=== PATIENT | male | born 1970 | race Caucasian/White ===

== ENCOUNTER 2021-03-04 19:45 | Emergency (ER) | payer OTHER ==
[~2021-03-04] VITALS: Ht 175.3 cm; Wt 83.9 kg
[2021-03-04] MEDS ORDERED: HYDROCODON-ACE1 EA12 PO (22:20)
== END 2021-03-04 22:39 | disposition home or self-care (01) ==
LOC: FSED 20:11
DX: S61.210A Laceration without foreign body of right index finger without damage to nail, initial encounter (principal); W26.8XXA Contact with other sharp object(s), not elsewhere classified, initial encounter; Y93.G3 Activity, cooking and baking; Y92.000 Kitchen of unspecified non-institutional (private) residence as the place of occurrence of the external cause; E78.1 Pure hyperglyceridemia; E78.5 Hyperlipidemia, unspecified; F99 Mental disorder, not otherwise specified
CPT/HCPCS: 99283

== ENCOUNTER 2023-04-09 14:22 | Emergency (ER) | payer OTHER ==
[~2023-04-09] VITALS: Ht 175.3 cm; Wt 94.1 kg
[~2023-04-09 14:22] MED LIST: HYDROCODON-ACE1 EA12 PO
[2023-04-09 14:29] VITALS: O2SAT 94
== END 2023-04-09 14:40 | disposition home or self-care (01) ==
LOC: FSED 14:26
DX: Z48.02 Encounter for removal of sutures (principal)
CPT/HCPCS: 99282; S0630